=== PATIENT | male | born 1955 | race African-American/Black ===

== ENCOUNTER 2024-10-14 11:55 | Emergency (ER) | payer BC, MEDICAID ==
[~2024-10-14] VITALS: Ht 177.8 cm; Wt 100.0 kg
[2024-10-14 12:07] VITALS: O2SAT 97
[2024-10-14 13:11] LABS: BASOPHILS % 0.6 % (0.0-2.0); EOSINOPHILS % 0.8 % (0.0-5.0); HEMATOCRIT. 45.6 % (42.0-52.0); HEMOGLOBIN. 15.3 g/dL (14.0-18.0); MEAN CORPUSCULAR HEMOGLOBIN 27.1 pg (28.0-32.0); MEAN CORPUSCULAR HGB CONC 33.5 g/dL (31.0-37.0); MEAN CORPUSCULAR VOLUME 80.9 fL (80.0-94.0); MONOCYTES % 11.1 % (2.0-8.0); NEUTROPHILS % 55.5 % (40.0-76.0); RED BLOOD CELL COUNT 5.63 mill/uL (4.7-6.1); RED CELL DISTRIBUTION WIDTH 17.9 % (11.6-14.6)
[2024-10-14 13:18] LABS: CHLORIDE 109 mEq/L (98-107)
[2024-10-14 13:19] LABS: CARBON DIOXIDE 22 mEq/L (21-32); SODIUM 142 mEq/L (136-145)
[2024-10-14 13:20] LABS: CALCIUM 8.6 mg/dL (8.7-10.4)
[2024-10-14 13:22] LABS: DIFFERENTIAL COMMENT 1
[2024-10-14 13:24] LABS: CREATININE 1.2 mg/dL (0.6-1.3); GLUCOSE 122 mg/dL (70-105)
[2024-10-14 13:25] LABS: UREA NITROGEN BLOOD 17 mg/dL (9-23)
[2024-10-14 13:26] LABS: TROPONIN I HIGH SENSITIVITY 27 ng/L (3.0-53)
[2024-10-14 14:00] LABS: MEAN PLATELET VOLUME 11.4 fl (7.4-10.4); PLATELET 107 x1000/uL (130-400)
[2024-10-14] MEDS: HYDROCODONE/ACETAMINOPHEN 5/325MG TABLET PO ONE (14:08)
[2024-10-14 14:09] VITALS: BP 134/91; PULSE 81; RESP 15; TEMP 36.8; O2SAT 97
[2024-10-14] MEDS: ASPIRIN 325MG EC TABLET PO ONE (14:09)
[2024-10-14 14:36] LABS: INR 1.2; PROTHROMBIN TIME 12.5 sec (9.6-11.0)
[2024-10-14 14:44] LABS: ETHANOL BLOOD < 10 mg/dL (<10)
[2024-10-14 14:46] LABS: TROPONIN I HIGH SENSITIVITY 31 ng/L (3.0-53)
== END 2024-10-14 14:23 | disposition left against medical advice (07) ==
LOC: ER 11:55
DX: M54.6 Pain in thoracic spine (principal); R07.89 Other chest pain; I11.0 Hypertensive heart disease with heart failure; I50.9 Heart failure, unspecified; J44.9 Chronic obstructive pulmonary disease, unspecified
CPT/HCPCS: 36415; 80048; 80320; 83880; 84484; 85025; 93005; 99284; G0480